=== PATIENT | male | born 1970 | race Caucasian/White ===

== ENCOUNTER 2019-04-23 12:53 | Emergency (ER) | payer MEDICARE, MEDICAID ==
[~2019-04-23] VITALS: Ht 190.5 cm; Wt 129.5 kg
[~2019-04-23 12:53] MED LIST: CARV-50 PO; CLIN-96 PO; CYCL-394 PO; GABA-338 PO; GABA600T PO; GABA600T13 PO; GABA800T11 PO; IBUP-1572 PO; IBUP-1984 PO; LISI-600 PO; LISI1TAB11 PO; TRAM50TA2 PO
[2019-04-23 12:55] VITALS: BP 138/85
[2019-04-23] MEDS ORDERED: GABA800T11 PO (13:53)
== END 2019-04-23 14:01 | disposition home or self-care (01) ==
LOC: ER 12:53
DX: R56.9 Unspecified convulsions (principal); Z76.0 Encounter for issue of repeat prescription; I10 Essential (primary) hypertension; G89.29 Other chronic pain; F41.9 Anxiety disorder, unspecified; F31.9 Bipolar disorder, unspecified; Z90.49 Acquired absence of other specified parts of digestive tract; Z79.899 Other long term (current) drug therapy
CPT/HCPCS: 99283